=== PATIENT | female | born 1970 | race Caucasian/White ===

== ENCOUNTER 2018-01-02 20:58 | Emergency (ER) | payer BC ==
[~2018-01-02] VITALS: Ht 154.9 cm; Wt 81.0 kg
[~2018-01-02 20:58] MED LIST: AMOX500C2 PO; NORE-87 PO
[2018-01-02] MEDS ORDERED: morphine 4 MG/ML inj SYRINge IV PRN (21:20)
[2018-01-02] MEDS ORDERED: morphine 4 MG/ML inj SYRINge IV ONE (21:20)
[2018-01-02] MEDS ORDERED: diazepam 5mg tablet PO ONE (21:20)
[2018-01-02] MEDS ORDERED: NORMAL SALINE IV ONE (21:25)
[2018-01-02] MEDS ORDERED: KETAMINE IV ONE (21:25)
[2018-01-02 21:56] LABS: BASOPHILS # (AUTO) 0.1 X10'3 (0-0.2); BASOPHILS % (AUTO) 0.7 % (0-1); EOSINOPHILS # (AUTO) 0.1 X10'3 (0-0.9); HEMATOCRIT 39.9 % (35.0-45.0); HEMOGLOBIN 13.6 g/dl (12.0-16.0); LYMPHOCYTES # (AUTO) 1.8 X10'3 (1.1-4.8); LYMPHOCYTES % (AUTO) 19.1 % (21-51); MEAN CORPUSCULAR HEMOGLOBIN 30.7 PG (27.0-31.0); MEAN CORPUSCULAR HGB CONC 34.2 % (33.0-36.5); MEAN CORPUSCULAR VOLUME 89.7 FL (78-98); MEAN PLATELET VOLUME 7.3 FL (7.4-10.4); MONOCYTES # (AUTO) 0.5 X10'3 (0-0.9); MONOCYTES % (AUTO) 5.7 % (2-12); NEUTROPHILS # (AUTO) 6.9 X10'3 (1.8-7.7); NEUTROPHILS % (AUTO) 73.5 % (42-75); PLATELET COUNT 283 X10'3 (140-440); RED BLOOD COUNT 4.45 X10'6 (4.20-5.60); WHITE BLOOD COUNT 9.4 X10'3 (4.5-11.0)
[2018-01-02] MEDS ORDERED: HYDR-565 PO (22:04)
[2018-01-02] MEDS ORDERED: ORPH100T2 PO (22:04)
[2018-01-02] MEDS ORDERED: IBUP-1984 PO (22:04)
[2018-01-02 22:10] LABS: ALANINE AMINOTRANSFERASE 15 U/L (12-78); ALBUMIN 3.1 G/DL (3.4-5.0); ALBUMIN/GLOBULIN RATIO 0.8 (1.1-1.5); ALKALINE PHOSPHATASE 94 IU/L (46-116); ANION GAP 9 (8-16); ASPARTATE AMINO TRANSFERASE 14 U/L (10-37); BILIRUBIN,TOTAL 0.2 MG/DL (0.1-1.0); BLOOD UREA NITROGEN 15 MG/DL (7-18); BUN/CREATININE RATIO 17.4 (6.6-38.0); CALCIUM 8.5 MG/DL (8.5-10.1); CHLORIDE 103 MMOL/L (99-107); CREATININE 0.86 MG/DL (0.40-0.90); GLUCOSE 115 MG/DL (70-104); LIPASE 86 U/L (73-393); SODIUM 138 MMOL/L (135-145); TOTAL CARBON DIOXIDE 25.7 MMOL/L (24-32); TOTAL PROTEIN 7.2 G/DL (6.4-8.2); eGFR 71 ML/MIN
[2018-01-02 22:28] LABS: URINE HCG NEGATIVE (NEG)
[2018-01-02 22:29] LABS: CLARITY,URINE CLEAR (Clear); COLOR,URINE YELLOW (Yellow); GLUCOSE, URINE NEGATIVE (Neg); KETONES,URINE NEGATIVE (Neg); LEUKOCYTE ESTERASE ,URINE NEGATIVE (Neg); NITRITES, URINE NEGATIVE (Neg); OCCULT BLOOD,URINE NEGATIVE (Neg); PROTEIN,URINE NEGATIVE (Neg); UROBILINOGEN,URINE 0.2 E.U/dL (0.2-1.0)
[2018-01-02 22:35] LABS: UA COLLECTION TYPE CLN CATCH MIDSTREAM
[2018-01-02 22:54] VITALS: BP 120/70
== END 2018-01-02 22:55 | disposition home or self-care (01) ==
LOC: ER 20:59
DX: M54.89 Other dorsalgia (principal)
CPT/HCPCS: 36415; 80053; 81003; 81025; 83690; 85025; 96374; 99284; J2270